=== PATIENT | female | born 1965 | race Caucasian/White ===

== ENCOUNTER 2017-03-06 08:30 | Day surgery (SDC) | payer BC ==
[~2017-03-06 08:30] MED LIST: Lidocaine 1%/Sod Bicarbonate in NS 8.4% 1 ML Syringe IV PRN; Sodium Chloride 0.9% 10 ML Syringe FLUSH PRN
[2017-03-06] MEDS: Lactated Ringers 1,000 ML IV SCH ×2 (08:55→14:30)
--- NOTE | 2017-03-06 09:30 | PCM.PREANE ---
Preanesthetic Assessment - Anesthesia/Transfusion/Family Hx Anesthesia History: Prior Anesthesia Reaction (nausea vomiting) Family History of Anesthesia Reaction: No Transfusion History: No Prior Transfusion(s) - Review of Systems General: No Symptoms Pulmonary: No Symptoms Cardiovascular: No Symptoms Gastrointestinal: No symptoms Neurological: No Symptoms Other: Reports: Thyroid Problems - Physical Assessment NPO Status Date: 03/05/17 NPO Status Time: 20:00 O2 Sat by Pulse Oximetry: 98 Respiratory Rate: 16 Vital Signs: Last Vital Signs Temp 97.7 F 03/06/17 08:40 Pulse 56 L 03/06/17 08:40 Resp 16 03/06/17 08:40 BP 137/53 L 03/06/17 08:40 Pulse Ox 98 03/06/17 08:40 Height: 5 ft 8 in Weight: 124.738 kg ASA Class: 2 Mental Status: Alert & Oriented x3 Airway Class: Mallampati = 1 Dentition: Reports: Normal Dentition Thyro-Mental Finger Breadths: 3 Mouth Opening Finger Breadths: 3 ROM/Head Extension: Full Lungs: Clear to auscultation, Normal respiratory effort Cardiovascular: Regular Rate, Regular Rhythm, No Murmurs - Allergies Allergies/Adverse Reactions: Allergies Allergy/AdvReac Type Severity Reaction Status Date / Time morphine Allergy Rash Verified 03/03/17 14:18 - Blood Blood Available: No - Acknowledgements Anesthesia Type Planned: MAC Pt an Appropriate Candidate for the Planned Anesthesia: Yes Alternatives and Risks of Anesthesia Discussed w Pt/Guardian: Yes Pt/Guardian Understands and Agrees with Anesthesia Plan: Yes PreAnesthesia Questionnaire - Past Health History Medical/Surgical History: Denies Medical/Surgical History HEENT History: Reports: Impaired vision Cardiovascular History: Reports: None Respiratory History: Reports: PE (1 year ago) Gastrointestinal History: Reports: None Genitourinary History: Reports: None ANIMAL RESCUER History: Reports: None Musculoskeletal History: Reports: None Neurological History: Reports: None Psychiatric History: Reports: None Endocrine/Metabolic History: Reports: Hypothyroidism, Obesity/BMI 30+ Hematologic History: Reports: None Immunologic History: Reports: None Oncologic (Cancer) History: Reports: None Dermatologic History: Reports: None - Past Surgical History Head Surgeries/Procedures: Reports: None Endocrine Surgical History: Reports: None Musculoskeletal Surgical History: Reports: Other (see below) (elbow surgery twice) Other Musculoskeletal Surgeries/Procedures:: disc replaced in cervical spine and elbow surgery - SUBSTANCE USE Smoking Status *Q: Never Smoker Tobacco Use Within Last Twelve Months: No Second Hand Smoke Exposure: No Days Per Week of Alcohol Use: 1 Number of Drinks Per Day: 1 Total Drinks Per Week: 1 Recreational Drug Use History: No - HOME MEDS Home Medications: Home Meds Levothyroxine Sodium [Levothyroxine Sodium] 200 mcg PO DAILY 03/03/17 [History] - CURRENT (IN HOUSE) MEDS Current Meds: Current Medications Lactated Ringer's (Ringers, Lactated) 1,000 mls @ 125 mls/hr IV ASDIRECTED MAYCOL Stop: 03/06/17 23:00 Last Admin: 03/06/17 08:55 Dose: 125 mls/hr Lidocaine/Sodium Bicarbonate (Buffered Lidocaine 1% In Ns 8.4%) 0.25 ml IV ONETIME PRN PRN Reason: Prior to IV Start Stop: 03/06/17 18:00 Last Admin: 03/06/17 08:55 Dose: 0.25 ml Sodium Chloride (Saline Flush) 10 ml FLUSH ASDIRECTED PRN PRN Reason: Keep Vein Open Stop: 03/06/17 18:00 Preanesthetic Assessment - ANESTHESIA/TRANSFUSION/FAMILY HX Anesthesia/Transfusion History: No Prior Transfusion(s), Prior Anesthesia Reaction Type of Anesthesia Reaction: Reports: Excessive Nausea/Vomiting Family History of Anesthesia Reaction: No - PHYSICAL ASSESSMENT O2 Sat by Pulse Oximetry: 98 RR: 16 Vital Signs: Last Vital Signs Temp 97.7 F 03/06/17 08:40 Pulse 56 L 03/06/17 08:40 Resp 16 03/06/17 08:40 BP 137/53 L 03/06/17 08:40 Pulse Ox 98 03/06/17 08:40 Height: 5 ft 8 in Weight: 124.738 kg NPO Status Date: 03/05/17 NPO Status Time: 20:00 - ALLERGIES Allergies/Adverse Reactions: Allergies Allergy/AdvReac Type Severity Reaction Status Date / Time morphine Allergy Rash Verified 03/03/17 14:18
[2017-03-06] MEDS ORDERED: Propofol 200 MG/20 ML SDV ONE ×4 (10:46→12:15)
[2017-03-06] MEDS ORDERED: fentaNYL 100 MCG/2 ML SDV ONE (11:18)
[2017-03-06] MEDS ORDERED: Lidocaine 1% 30 ML SDV ONE (11:22)
[2017-03-06] MEDS ORDERED: Ketorolac 30 MG/ML SDV ONE (11:43)
--- NOTE | 2017-03-06 12:15 | PCM.OPNOTE ---
- General Post-Op/Procedure Note Date of Surgery/Procedure: 03/06/17 Operative Procedure(s): colonoscopy to cecum/I&D per-rectal abscess with fistulectomy Pre Op Diagnosis: rectal bleeding/perirectal abascess Post-Op Diagnosis: Same Primary Surgeon: Vicente Grajeda EBL in mLs: 10 Complications: None Condition: Good
--- NOTE | 2017-03-06 12:16 | PCM48HPAN ---
Post Anesthesia Note - EVALUATION WITHIN 48HRS OF ANESTHETIC Vital Signs in Normal Range: Yes Patient Participated in Evaluation: Yes Respiratory Function Stable: Yes Airway Patent: Yes Cardiovascular Function Stable: Yes Hydration Status Stable: Yes Pain Control Satisfactory: Yes Nausea and Vomiting Control Satisfactory: Yes Mental Status Recovered: Yes
[2017-03-06 14:18] VITALS: BP 104/55
--- NOTE | 2017-03-07 09:35 | OR ---
DATE OF OPERATION: 03/06/2017 SURGEON: Vicente Grajeda MD PREOPERATIVE DIAGNOSIS: Rectal bleeding and right anterior perirectal abscess. POSTOPERATIVE DIAGNOSIS: Rectal bleeding and right anterior perirectal abscess. OPERATION PERFORMED: Colonoscopy to cecum with incision and drainage of a perirectal abscess with a . ANESTHESIA: Procedure done under IV sedation, 1% Xylocaine. DESCRIPTION OF PROCEDURE: The patient was taken to the endoscopy room, placed in a supine position, connected to monitoring equipment. Placed in left lateral position. Perianal area was inspected, it showed anterior abscess in the perirectal area on the right. Rectal exam showed an anterior fistula associated with this, which was below the puborectalis. A video Olympus colonoscope was then introduced into the rectum and threaded up without problem to the cecum, where the appendicular orifice, ileocecal valve was noted. Prep was excellent. [place] Cleansing score grade A throughout the colon and the scope slowly withdrawn showing the cecum, ascending colon, transverse colon, descending colon, sigmoid colon, and rectum. Retroflexed view was done. The patient remaining in the left lateral position. The buttocks were then taped apart. The perianal area was then prepped. An abscess was identified and the skin over the abscess was anesthetized with 1% Xylocaine and opened. A small hemostat was inserted and exited out into the anal canal through the fistula openings and this was incised, . Bleeding points controlled with electrocautery and pressure and dibucaine ointment was then placed and this patient tolerated the procedure. Estimated blood loss was approximately 10 mL. The patient tolerated the procedure and sent to recovery room in a stable condition. ESTIMATED BLOOD LOSS: MMODAL /[id number]
--- NOTE | 2017-03-31 20:46 | OR ---
DATE OF OPERATION: 03/06/2017 SURGEON: Vicente Grajeda MD ADDENDUM: In addition to the colonoscopy, a small polyp was noted just inside the rectum. This was biopsied with cold biopsy forceps and sent to pathology in a labeled container. MMODAL /[id number]
== END 2017-03-06 13:40 | disposition home or self-care (01) ==
LOC: JD.SDS 08:30
PROVIDERS: ATTEND Surgery
DX: K62.1 Rectal polyp (principal); K61.1 Rectal abscess; E66.9 Obesity, unspecified; E03.9 Hypothyroidism, unspecified; Z86.711 Personal history of pulmonary embolism; Z88.5 Allergy status to narcotic agent; Z79.899 Other long term (current) drug therapy; Z98.890 Other specified postprocedural states
CPT/HCPCS: 45380; 88305; A9270; J1885; J3010; J7120; 00902; J2704

== ENCOUNTER 2018-08-31 09:31 | Emergency (ER) | payer BC ==
[2018-08-31 09:40] VITALS: BP 124/67
--- NOTE | 2018-08-31 09:56 | EDM.PDOC ---
ED HPI GENERAL MEDICAL PROBLEM - General Chief Complaint: Respiratory Problem Stated Complaint: SOB Time Seen by Provider: 08/31/18 09:42 Source of Information: Reports: Patient, RN Notes Reviewed History Limitations: Reports: No Limitations - History of Present Illness INITIAL COMMENTS - FREE TEXT/NARRATIVE: The patient states that she developed dyspnea on exertion, as well as lightheadedness if she bends over, yesterday. No recent headache, chest pain, palpitations, cough, fever, nausea, vomiting, constipation, diarrhea, or urinary symptoms. The patient states that she had similar symptoms previously, when she had a PE. She states that she had PEs in approximately 2014 and approximately 2016. She states that a hypercoagulable workup by a Reflexologist was performed, but did not find anything. Nevertheless, she is on Xarelto, and states that she has not missed any doses recently. The patient's PCP was Keila Kimble. - Related Data Allergies Allergy/AdvReac Type Severity Reaction Status Date / Time morphine Allergy Rash Verified 08/31/18 09:40 Home Meds: Home Meds Levothyroxine Sodium 200 mcg PO DAILY 03/03/17 [History] Rivaroxaban [Xarelto] 20 mg PO DAILY 08/31/18 [History] atorvaSTATin [Lipitor] 1 tab PO DAILY 08/31/18 [History] Past Medical History HEENT History: Reports: Impaired Vision Cardiovascular History: Reports: High Cholesterol Respiratory History: Reports: PE (approx 2016) Endocrine/Metabolic History: Reports: Hypothyroidism, Obesity/BMI 30+ - Past Surgical History HEENT Surgical History: Reports: Oral Surgery (wisdom teeth extraction) Neurological Surgical History: Reports: C-Spine (ACDF) Musculoskeletal Surgical History: Reports: Other (See Below) (Right elbow pinning) Oncologic Surgical History: Reports: Biopsy of Breast Social & Family History - Family History HEENT: Reports: Cataract, Glaucoma Cardiac: Reports: Blood Clots/VTE/DVT, CAD Respiratory: Reports: Asthma, COPD, PE GI: Reports: GERD Musculoskeletal: Reports: Back pain, Chronic, RA Neurological: Reports: Alzheimers Disease, Neuropathy, Peripheral, Parkinson's Psychiatric: Reports: Depression Endocrine/Metabolic: Reports: Hypothyroidism, Osteoporosis Hematologic: Reports: B12 Deficiency - Tobacco Use Smoking Status *Q: Never Smoker - Caffeine Use Caffeine Use: Reports: Coffee - Alcohol Use Alcohol Use History: Yes Alcohol Use Frequency: Socially - Recreational Drug Use Recreational Drug Use: No - Living Situation & Occupation Living situation: Reports: , with Spouse Occupation: Employed (ABLE) ED ROS GENERAL - Review of Systems Review Of Systems: ROS reveals no pertinent complaints other than HPI. ED EXAM, GENERAL - Physical Exam Exam: See Below Exam Limited By: No Limitations General Appearance: Alert, WD/WN, No Apparent Distress Eye Exam: Bilateral Eye: EOMI, Normal Inspection Ears: Normal External Exam, Hearing Grossly Normal Nose: Normal Inspection Throat/Mouth: Normal Inspection, Normal Lips, Normal Voice, No Airway Compromise Head: Atraumatic, Normocephalic Neck: Normal Inspection, Full Range of Motion Respiratory/Chest: No Respiratory Distress, Lungs Clear, Normal Breath Sounds, No Accessory Muscle Use. No: Decreased Breath Sounds, Crackles, Rhonchi, Wheezing, Stridor, Prolonged Expiration Cardiovascular: Normal Peripheral Pulses, Regular Rate, Rhythm, No Gallop, No JVD, No Murmur, No Rub Peripheral Pulses: 4+: Radial (L), Radial (R) GI/Abdominal: Normal Bowel Sounds, Soft, Non-Tender, No Organomegaly, No Distention, No Abnormal Bruit, No Mass, Other (Obese) (Female) Exam: Deferred Rectal (Female) Exam: Deferred Back Exam: Normal Inspection, Full Range of Motion, NT Extremities: Normal Inspection, Normal Range of Motion, No Pedal Edema, Normal Capillary Refill Neurological: Alert, Oriented, Normal Cognition, No Motor/Sensory Deficits Psychiatric: Normal Affect Skin Exam: Warm, Dry, Intact, Normal Color, No Rash EKG INTERPRETATION EKG Date: 08/31/18 Time: 10:07 Rhythm: Other (Sinus bradycardia) Rate (Beats/Min): 58 Springer: Normal P-Wave: Present QRS: Normal ST-T: Normal QT: Normal Comparison: No Change (02/06/2016) Course - Vital Signs Last Recorded V/S: Last Vital Signs Temp 36.3 C 08/31/18 09:38 Pulse 66 08/31/18 09:38 Resp 18 08/31/18 09:38 BP 124/67 08/31/18 09:38 Pulse Ox 97 08/31/18 09:38 Orthostatic Blood Pressure [ 102/76 Standing] Orthostatic Blood Pressure [ 110/71 Supine] - Orders/Labs/Meds Orders: Active Orders 24 hr Category Date Time Status EKG Documentation Completion [RC] STAT Care 08/31/18 09:55 Active Orthostatic Vital Signs [RC] STAT Care 08/31/18 09:55 Active Labs: Laboratory Tests 08/31/18 08/31/18 08/31/18 Range/Units 10:10 10:10 10:10 WBC 6.92 (3.98-10.04) K/mm3 RBC 4.46 (3.98-5.22) M/mm3 Hgb 13.4 (11.2-15.7) gm/L Hct 41.0 (34.1-44.9) % MCV 91.9 (79.4-94.8) fl MCH 30.0 (25.6-32.2) pg MCHC 32.7 (32.2-35.5) g/dl RDW Std Deviation 46.3 (36.4-46.3) fL Plt Count 182 (182-369) K/mm3 MPV 12.7 H (9.4-12.3) fl Neutrophils % (Manual) 70 H (40-60) % Band Neutrophils % 0 (0-10) % Lymphocytes % (Manual) 27 (20-40) % Atypical Lymphs % 0 % Monocytes % (Manual) 2 (2-10) % Eosinophils % (Manual) 0 L (0.7-5.8) % Basophils % (Manual) 1 (0.1-1.2) Platelet Estimate Adequate RBC Morph Comment Normal D-Dimer, Quantitative < 0.19 L (0.19-0.50) mg/L Sodium 139 (136-145) mEq/L Potassium 3.9 (3.5-5.1) mEq/L Chloride 106 (98-107) mEq/L Carbon Dioxide 27 (21-32) mEq/L Anion Gap 9.9 (5-15) BUN 20 H (7-18) mg/dL Creatinine 1.0 (0.55-1.02) mg/dL Est Cr Clr Drug Dosing 65.63 mL/min Estimated GFR (MDRD) 58 (>60) mL/min BUN/Creatinine Ratio 20.0 H (14-18) Glucose 96 (74-106) mg/dL Calcium 9.2 (8.5-10.1) mg/dL Magnesium 2.2 (1.8-2.4) mg/dl Total Bilirubin 0.2 (0.2-1.0) mg/dL AST 24 (15-37) U/L ALT 45 (14-59) U/L Alkaline Phosphatase 75 (46-116) U/L Troponin I < 0.017 (0.00-0.056) ng/mL Total Protein 7.1 (6.4-8.2) g/dl Albumin 3.4 (3.4-5.0) g/dl Globulin 3.7 gm/dL Albumin/Globulin Ratio 0.9 L (1-2) - Re-Assessments/Exams Free Text/Narrative Re-Assessment/Exam: 08/31/18 10:45 The patient is not orthostatic. 08/31/18 10:47 2-view chest radiograph appears to be grossly normal. Cardiac silhouette is within normal limits. No pulmonary vascular congestion. No pleural effusions. No focal infiltrate. No pneumothorax. Very slight scoliosis incidentally noted. Formal read per the Radiologist pending. 08/31/18 11:41 Test results discussed with the patient. Today's workup is entirely unremarkable , and does not explain the cause of the patient's symptoms. We can say definitively that the patient does not have a pulmonary embolus, nor did we find any other abnormalities, such as intravascular depletion, anemia, electrolyte abnormalities, a VT, pneumonia or pneumothorax, or cardiac dysrhythmias. I believe the patient can safely be discharged home. Departure - Departure Time of Disposition: 11:42 Disposition: Home, Self-Care 01 Condition: Good Clinical Impression: Dyspnea on exertion, Lightheaded - Discharge Information *PRESCRIPTION DRUG MONITORING PROGRAM REVIEWED*: Not Applicable *COPY OF PRESCRIPTION DRUG MONITORING REPORT IN PATIENT FRANCISCO: Not Applicable Referrals: Tamar Hutchinson MD [Primary Care Provider] - Forms: ED Department Discharge Additional Instructions: You were seen in the emergency room for shortness of breath with exertion and lightheadedness when you bend over. Workup in the ER included blood work, positional blood pressure checks, a chest x-ray, and an ECG. Your entire workup was unremarkable, and does not explain the cause of her symptoms. You are not intravascularly depleted. You are not anemic. You do not have any alcohol abnormalities. You have not had a heart attack. You do not have pneumonia or collapsed lung. You do not have a blood clot in your lungs. No abnormalities were found on your ECG. Follow-up with your PCP, Tamar Hutchinson, as needed. If any other problems, please do not hesitate to return to the ER. - My Orders Last 24 Hours: My Active Orders 08/31/18 09:55 EKG Documentation Completion [RC] STAT Orthostatic Vital Signs [RC] STAT - Assessment/Plan Last 24 Hours: My Active Orders 08/31/18 09:55 EKG Documentation Completion [RC] STAT Orthostatic Vital Signs [RC] STAT
--- NOTE | 2018-08-31 11:16 | CR ---
Chest: Two views of the chest were obtained. Comparison: Prior chest x-ray of 02/06/16. Heart size and mediastinum are normal. Lungs are clear. Prior cervical spine surgery is noted. Minimal scattered disc space narrowing within the spine is seen. Minimal scoliosis is noted. Impression: 1. Incidental findings. Nothing acute is seen on two-view chest x-ray. Diagnostic code #2
== END 2018-08-31 11:52 | disposition home or self-care (01) ==
LOC: JD.ED 09:31
DX: R06.00 Dyspnea, unspecified (principal); R42 Dizziness and giddiness; E78.00 Pure hypercholesterolemia, unspecified; Z88.5 Allergy status to narcotic agent; Z79.899 Other long term (current) drug therapy
CPT/HCPCS: 36415; 71046; 71046-26; 80053; 83735; 84484; 85007; 85027; 85379; 93005; 93010; 99284-25; 99285-25